=== PATIENT | female | born 1975 | race Caucasian/White ===

== ENCOUNTER 2024-07-21 14:49 | Emergency (ER) | payer OTHER, SELFPAY ==
[2024-07-21 14:58] VITALS: BP 130/70
[2024-07-21 15:30] LABS: % Basophils 0.7 % (0-2); % Eosinophils 2.3 % (0-6); % Immature Granulocytes 0.2 % (0-0.5); % Lymphocytes 15.3 % (20.5-51.1); % Monocytes 3.8 % (1.7-9.3); % Neutrophils 77.7 % (42.2-75.2); Absolute Basophils 0.1 10^3/uL (0-0.2); Absolute Eosinophils 0.2 10^3/uL (0-0.7); Absolute Lymphocytes 1.3 10^3/uL (1.2-3.4); Absolute Monocytes 0.3 10^3/uL (0.1-0.6); Absolute Neutrophils 6.5 10^3/uL (1.4-6.5); Hematocrit 37.5 % (37.0-47.0); Hemoglobin 13.2 g/dL (12.0-16.0); Mean Corp Hgb Conc. 35.2 g/dL (33.0-37.0); Mean Corpuscular Hgb 31.4 pg (27.0-31.0); Mean Corpuscular Volume 89.1 fL (81.0-99.0); Mean Platelet Volume 9.3 fL (7.4-10.4); Nucleated Red Blood Cells % 0 %; Platelet Count 214 10^3/uL (130-400); Red Blood Cell Count 4.21 10^6/uL (4.20-5.40); Red Cell Dist. Width 12.4 % (11.5-14.5); White Blood Cell Count 8.4 10^3/uL (4.8-10.8)
[2024-07-21 15:54] LABS: Troponin I < 0.012 ng/ml
[2024-07-21 15:56] LABS: ALT (SGPT) 31 U/L (0-35); AST (SGOT) 32 U/L (14-36); Albumin 4.6 g/dl (3.5-5.0); Alkaline Phosphatase 63 U/L (38-126); Blood Urea Nitrogen 15 mg/dl (7-17); Calcium 9.1 mg/dl (8.4-10.2); Carbon Dioxide 27 mmol/L (22-30); Chloride 97 mmol/L (98-107); Glucose 94 mg/dl (70-99); Potassium 3.7 mmol/L (3.5-5.1); Sodium 133 mmol/L (135-145); Total Bilirubin 0.7 mg/dl (0.2-1.3); Total Protein 6.6 g/dl (6.3-8.2); eGFR > 60.00
[2024-07-21 18:43] VITALS: BP 132/71
--- NOTE | 2024-07-21 20:04 | ED.GENMED ---
History of Present Illness
General
Chief Complaint: Eye Problems
Source: patient
Exam Limitations: none
Time Seen by Provider: 07/21/24 19:44
Nursing documentation reviewed up to this point in time: agreed with
History of Present Illness
History of Present Illness:
49-year-old female with a past medical history of hypothyroidism who presents emergency department today with concerns of multiple symptoms following exercising today. Patient reports that she used to frequently run and reports that she has been
recently getting back into exercise. Patient reports that today she did exercise for the first time in a while and exercising vigorously including running and a high intensity interval training. Patient reports that she exercised for an hour.
Patient reports that when she was down, she is lying down the stretch and started to feel like she is going to pass out. She states that she started to get some blurry vision, lightheadedness, and feeling of warmth. She states that she did not
ever actually passed out. Patient reports that she went to sit up and started to feel better. Patient states that her visual changes slowly started to improve. She denies any eye pain. Currently she is asymptomatic. She reports also at the
time, she has sudden onset of a frontal headache and some nausea as well but all this is since resolved. She denies any recent head or neck trauma. She denies any neck stiffness. She denies any fevers or chills.
Past History
Past History
ED Past Medical History: Valvular disease (Mitral valve prolapse) and Hypothyroidism
ED Past Surgical History:
Social History
Tobacco: Non-smoker
Alcohol: None
Living: with family
Employment: Employed
Review of Systems
Review of Systems
All Other Systems: ROS reviewed and negative except as documented in HPI and ROS
Phy Exam
Physical Exam
Physical Exam:
General: Patient is well appearing and in no acute distress; non-toxic
Skin: Warm and dry, no rashes or lesions
Head: Normocephalic, atraumatic
Eyes: Sclera non-icteric. EOMs intact.
Cardiac: Regular rate and rhythm, no murmurs
Peripheral Vascular: No lower extremity swelling or edema
Pulm: Normal respiratory effort, no wheezes, rales, rhonchi
Abdomen: No abdominal tenderness to palpation
Neuro: CN II-XII intact, no focal neurologic deficits. Normal finger-nose, [id number].
Psychiatric: Appropriate mood and affect.
Course
Orders/Labs/Results
Orders:
Orders
07/21/24 15:01
Electrocardiogram (*1) Urgent
Reason for Study: Other
Other Reason for Exam: Respiratory Distress
EKG- Treatment ONCE
07/21/24 15:15
Complete Blood Count/With Diff Urgent
Comprehensive Metabolic Panel Urgent
Troponin I Urgent
07/21/24 20:04
Visual Acuity- Treatment ONCE
Abnormal Lab Results
07/21/24
15:15
MCH 31.4 H pg
(27.0-31.0)
Neutrophils % 77.7 H %
(42.2-75.2)
Lymphocytes % 15.3 L %
(20.5-51.1)
Sodium 133 L mmol/L
(135-145)
Chloride 97 L mmol/L
(98-107)
07/21/24 15:15
07/21/24 15:15
Vital Signs
Initial and Last Documented VS:
Initial Vital Signs
Temp Pulse Resp BP Pulse Ox
98.2 F 80 16 130/70 98
07/21/24 14:58 07/21/24 14:58 07/21/24 14:58 07/21/24 14:58 07/21/24 14:58
Last Documented Vital Signs
Temp Pulse Resp BP Pulse Ox
98.2 F 72 18 132/71 98
07/21/24 14:58 07/21/24 18:43 07/21/24 18:43 07/21/24 18:43 07/21/24 18:43
MDM/Problems Addressed
Differential Diagnosis Includes:
Differentials include vasovagal syncope, tension headache, migraine headache, dysrhythmia, electrolyte derangement, anemia
MDM/Problems Addressed:
49-year-old female presents with multiple symptoms following an episode of vigorous exercise. Symptoms consistent with vasovagal presyncope. She is currently asymptomatic. Did consider CAT scan of the head in light of severe headache however
patient is asymptomatic at this time and has a nonfocal neurologic exam. Doubt cardiac etiology to her symptoms, EKG shows normal sinus rhythm.
Patient's persistent visual changes that occurred earlier, did advise that patient should follow-up with her motion picture printer that she sees once a year. Patient states that the past 2 years she has had normal ocular exams. Patient states that she
will call her motion picture printer on Tuesday. Patient stable for discharge.
*Pulse Oximetry
Patient hypoxic: no
*Critical Care Note
Total Time (30-74mins, 75-104mins- exclusive of procedures): Not Applicable
Data Reviewed
Review of Other/Old Records Reveals: Records (Reviewed ER physician documentation from 02/25/2016 patient seen for diarrhea, no discharge summaries in [facility] to review)
Source: patient and records
Patient Management
Escalation/DeEscalation of care consider admission/obs:
admit not indicated, patient stable for discharge
ED Attending Note
-
Portions of this chart may have been created with voice recognition software.� Occasional wrong word or��sound alike� substitutions may have occurred due to the inherent limitations of voice recognition software.
Discharge Plan
Departure
Patient Disposition: Home (Routine Discharge)
Date of Disposition: 07/21/24
Time of Disposition: 20:27
Patient with high blood pressure during this ER visit?: Yes
Condition: Good
Discharge Problem:
Vaso-vagal reaction, Blurred vision
Instructions: Vasovagal Response, BLOOD PRESSURE
Prescriptions:
No Action
levothyroxine [Synthroid] 100 MCG tablet
150 mcg PO DAILY
Cytomel
50 mcg PO DAILY
amoxicillin 875 MG tablet
875 mg PO BID Qty: 14 0RF
ondansetron 4 MG tablet,disintegrating
4 mg PO TIDPRN PRN (Reason: NAUSEA) Qty: 10 0RF
albuterol sulfate 1 PUFF HFA aerosol inhaler
2 puff inhalation QIDPRN PRN (Reason: cough) Qty: 1 0RF
prednisone 50 MG tablet
50 mg PO DAILY Qty: 5 0RF
Rx Instructions:
take w/ a meal for 3-5 days
sulfamethoxazole-trimethoprim 1 TABLET tablet
1 tab PO BID Qty: 6 0RF
Referrals:
Katharine Vasquez MD [Family Provider] -
Activity Restrictions/Additional Instructions:
Please call your motion picture printer on Tuesday morning to schedule appointment for follow-up.
Your CBC and CMP blood work are unremarkable.
Your EKG shows normal sinus rhythm with no ischemic changes.
PLEASE RETURN TO EMERGENCY DEPARTMENT SHOULD YOU EXPERIENCE VISUAL LOSS, NECK STIFFNESS, NAUSEA AND VOMITING, FEVERS OR CHILLS, CHEST PAIN, SHORTNESS OF BREATH, RECURRENT SYNCOPAL EPISODES, OR ANY OTHER SIGNS OR SYMPTOMS WORRISOME TO YOU.
Interventions
Interventions:
*Risk Screen - Suicide Last Done: 07/21/24 14:58
*Neglect/Abuse Screening Last Done: 07/21/24 14:58
*ED COVID-19 Vaccine History Last Done: 07/21/24 18:43
*Nursing Disposition Last Done: 07/21/24 20:42
Discharge Date and Time
Discharge Date/Time: 07/21/24 20:42
Print Language: THAI
== END 2024-07-21 20:42 | disposition home or self-care (01) ==
LOC: EMR 14:49
PROVIDERS: Emergency Medicine; EMERGENCY PHYSICIAN Emergency Medicine; FAMILY PHYSICIAN Family Medicine
DX: R55 Syncope and collapse (principal); H53.8 Other visual disturbances; R03.0 Elevated blood-pressure reading, without diagnosis of hypertension; E03.9 Hypothyroidism, unspecified
CPT/HCPCS: 99284; 80053; 84484; 85025; 93005

== ENCOUNTER → 2025-01-15 09:59 | Outpatient (REF) | payer OTHER, SELFPAY | LOC: RAD 09:59 | PROVIDERS: ATTENDING PHYSICIAN Family Medicine | DX: S16.1XXA Strain of muscle, fascia and tendon at neck level, initial encounter (principal) | CPT/HCPCS: 72050; 72072 ==

== ENCOUNTER 2025-03-04 16:41 | Outpatient (RCR) | payer OTHER, SELFPAY | END 2025-03-04 23:59 | disposition home or self-care (01) | LOC: RPT 16:41 | PROVIDERS: ATTENDING PHYSICIAN Family Medicine | DX: S16.1XXD Strain of muscle, fascia and tendon at neck level, subsequent encounter (principal); S29.012D Strain of muscle and tendon of back wall of thorax, subsequent encounter; Z73.6 Limitation of activities due to disability; M62.81 Muscle weakness (generalized) | CPT/HCPCS: 97010; 97110; 97140; 97162; 97535 ==

== ENCOUNTER 2025-03-27 15:44 | Outpatient (RCR) | payer OTHER, SELFPAY | END 2025-03-27 23:59 | disposition home or self-care (01) | LOC: RPT 15:44 | PROVIDERS: ATTENDING PHYSICIAN Family Medicine | DX: S16.1XXD Strain of muscle, fascia and tendon at neck level, subsequent encounter (principal); S29.012D Strain of muscle and tendon of back wall of thorax, subsequent encounter; Z73.6 Limitation of activities due to disability; M62.81 Muscle weakness (generalized) | CPT/HCPCS: 97010; 97110; 97112; 97140 ==

== ENCOUNTER 2025-04-17 16:08 | Outpatient (RCR) | payer OTHER, SELFPAY | END 2025-04-17 23:59 | disposition home or self-care (01) | LOC: RPT 16:08 | PROVIDERS: ATTENDING PHYSICIAN Family Medicine | DX: S16.1XXD Strain of muscle, fascia and tendon at neck level, subsequent encounter (principal); S29.012D Strain of muscle and tendon of back wall of thorax, subsequent encounter; Z73.6 Limitation of activities due to disability; M62.81 Muscle weakness (generalized) | CPT/HCPCS: 97112; 97140; 97530 ==